=== PATIENT | female | born 1995 | race Caucasian/White ===

== ENCOUNTER 2025-05-11 16:06 | Emergency (ER) | payer BC, SELFPAY ==
[2025-05-11 16:12] VITALS: BP 166/86
[2025-05-11 16:48] LABS: Urine Character Clear (Clear)
[2025-05-11 16:50] LABS: Hematocrit 37.2 % (37.0-47.0); Hemoglobin 12.6 g/dL (12.0-16.0); Mean Corp Hgb Conc. 33.9 g/dL (33.0-37.0); Mean Corpuscular Volume 86.1 fL (81.0-99.0); Nucleated Red Blood Cells % 0 %; Platelet Count 222 10^3/uL (130-400); Red Cell Dist. Width 12.8 % (11.5-14.5)
[2025-05-11 17:06] LABS: HCG, Serum Qualitative Screen Negative
[2025-05-11 17:18] LABS: ALT (SGPT) 28 U/L (0-35); AST (SGOT) 22 U/L (14-36); Albumin 5.1 g/dl (3.5-5.0); Alkaline Phosphatase 57 U/L (38-126); Blood Urea Nitrogen 18 mg/dl (7-17); Calcium 10.3 mg/dl (8.4-10.2); Carbon Dioxide 27 mmol/L (22-30); Chloride 107 mmol/L (98-107); Glucose 95 mg/dl (70-99); Lipase 116 U/L (23-300); Potassium 3.9 mmol/L (3.5-5.1); Sodium 139 mmol/L (135-145); Total Protein 8.0 g/dl (6.3-8.2); eGFR > 60.00
[2025-05-11 19:34] VITALS: BP 125/74
[2025-05-11 19:50] VITALS: BMI 23.4
--- NOTE | 2025-05-11 20:06 | ED.GENMED ---
History of Present Illness
General
Chief Complaint: Abdominal Pain
Source: patient
Exam Limitations: none
Time Seen by Provider: 05/11/25 19:26
History of Present Illness
History of Present Illness:
30yoF with a history of prior cholecystectomy at the age of 16 presenting for evaluation of abdominal pain. Symptoms have been present for about a week. She reports a pain in the right upper quadrant that worsens with movement and eating. Her
current pain is described as dull but becomes stabbing when it gets worse. She is otherwise asymptomatic and denies any fevers, chills, vomiting, diarrhea, dysuria, chest pain, shortness of breath. Patient has a prior history of
choledocholithiasis while she was in college which required stent placement. She also has a history of pancreatitis and wants to make sure she is not dealing with either of those. Of note, patient was at a wedding and drank a lot of alcohol 2 days
before her symptoms began.
Past History
Past History
ED Past Medical History: Other (Pancreatitis)
ED Past Surgical History: Cholecystectomy
Social History
Tobacco: Non-smoker
Alcohol: None
Drug: None
Personal: Single
Phy Exam
General Physical Exam
General Presentation: well appearing and no apparent distress
General Skin: warm and dry
General Habitus: normal
General Mental: alert
ENT Exam
ENT Exam: normocephalic
Cardiovascular Exam
Cardiovascular Exam: regular rate/rhythm
Pulmonary Exam
Pulmonary Exam: lungs clear, no respiratory distress, no rales, no crackles, no rhonchi and no wheezing
Gastrointestinal Exam
Gastrointestinal Exam: soft, non distended and other (Mild tenderness in RUQ and epigastric regions. Abdomen soft, non-distended. No rebound or guarding.)
Neurological Exam
Neurological Exam: alert
Dennis Coma Scale
Eye Opening: Spontaneous
Verbal Response: Oriented
Motor Response: Obeys Commands
GCS Total Score: 15
Skin Exam
Skin Exam: normal color and warm/dry
Psychiatric Exam
Psychiatric Exam: normal mood/affect
Course
Orders/Labs/Results
Orders:
Orders
05/11/25 16:15
Test Result ONCE
05/11/25 16:33
Complete Blood Count/With Diff Urgent
Comprehensive Metabolic Panel Urgent
HCG, Serum Qualitative Screen Urgent
Lipase Urgent
05/11/25 16:38
Urine Reflex Culture from UA [Urinalysis Reflex To Culture] Urgent
Date Specimen was Collected: 05/11/25
Time Specimen was Collected: 16:36
05/11/25 19:35
US Abdomen Complete/Upper Urgent
Comment:
Reason For Exam: RUQ pain
Abnormal Lab Results
05/11/25
16:33
MPV 10.5 H fL
(7.4-10.4)
BUN 18 H mg/dl
(7-17)
Calcium 10.3 H mg/dl
(8.4-10.2)
Albumin 5.1 H g/dl
(3.5-5.0)
05/11/25 16:33
05/11/25 16:33
Vital Signs
Initial and Last Documented VS:
Initial Vital Signs
Temp Pulse Resp BP Pulse Ox
98.0 F 63 20 166/86 99
05/11/25 16:12 05/11/25 16:12 05/11/25 16:12 05/11/25 16:12 05/11/25 16:12
Last Documented Vital Signs
Temp Pulse Resp BP Pulse Ox
98.0 F 68 20 119/67 100
05/11/25 16:12 05/11/25 19:52 05/11/25 16:12 05/11/25 21:00 05/11/25 21:00
MDM/Problems Addressed
Differential Diagnosis Includes:
30yoF here with RUQ pain x 1 week. Worse with movement and eating. Hx of prior cholecystectomy with choledocholithiasis a few years later. VSS. She is well appearing in no distress. No signs of peritonitis on abdominal exam. Differential diagnosis
includes but is not limited to: choledocholithiasis, pancreatitis, musculoskeletal
Initial ED plan: Workup initiated in triage. LFTs including bilirubin are normal. Lipase and white count also normal. UA bland without signs of infection. Will check upper abdominal ultrasound.
*Pulse Oximetry
SaO2: 98
Oxygen Mode of Delivery: Room air
Patient hypoxic: no (99%)
*Critical Care Note
Total Time (30-74mins, 75-104mins- exclusive of procedures): Not Applicable
Update Note
Update Note:
US negative for acute findings. CBD is normal in diameter and there is no biliary dilatation. No clinical evidence of choledocholithiasis. She is stable for discharge. Advised f/u with PCP.
ED Attending Note
-
Portions of this chart may have been created with voice recognition software.� Occasional wrong word or��sound alike� substitutions may have occurred due to the inherent limitations of voice recognition software.
Discharge Plan
Departure
Patient Disposition: Home (Routine Discharge)
Date of Disposition: 05/11/25
Time of Disposition: 21:23
Patient with high blood pressure during this ER visit?: No
Discharge Problem:
Right upper quadrant abdominal pain
Instructions: Abdominal Pain
Prescriptions:
No Action
sertraline [Zoloft] 25 mg Tablet
25 mg PO DAILY
Referrals:
[facility] [Provider Group]
NONE,* [Family Provider, Internal Medicine]
Activity Restrictions/Additional Instructions:
Please follow-up with a family doctor. Return to the ER with any new or worsening symptoms.
Interventions
Interventions:
*Risk Screen - Suicide Last Done: 05/11/25 21:35
*General Assessment Last Done: 05/11/25 16:12
*Neglect/Abuse Screening Last Done: 05/11/25 19:52
*ED- Fall Risk Assessment Last Done: 05/11/25 19:51
*Nursing Disposition Last Done: 05/11/25 21:35
[facility] Assessment Last Done: 05/11/25 19:52
Discharge Date and Time
Discharge Date/Time: 05/11/25 21:35
Print Language: MALDIVIAN
[2025-05-11 20:13] VITALS: BP 123/60
[2025-05-11 21:00] VITALS: BP 119/67
== END 2025-05-11 21:35 | disposition home or self-care (01) ==
LOC: EMR 16:06
PROVIDERS: Emergency Medicine; EMERGENCY PHYSICIAN Emergency Medicine
DX: R10.11 Right upper quadrant pain (principal); Z87.19 Personal history of other diseases of the digestive system; Z90.49 Acquired absence of other specified parts of digestive tract
CPT/HCPCS: 99284; 76700; 80053; 81003; 83690; 84703; 85025